=== PATIENT | female | born 1975 | race Caucasian/White ===

== ENCOUNTER 2021-06-19 12:56 | Day surgery (SDC) | payer MEDICAID ==
[~2021-06-19] VITALS: Ht 157.5 cm; Wt 127.3 kg
[2021-06-19] MEDS ORDERED: fentaNYL/PF 50MCG/1 ML 2ML syringe ONE (13:04)
[2021-06-19] MEDS ORDERED: MIDAZolam 1 MG/ML 5ML VIAL ONE (13:05)
[2021-06-19 13:10] VITALS: BP 144/82
[2021-06-19] MEDS ORDERED: CLOP75TA15 PO (13:19)
[2021-06-19] MEDS ORDERED: CELE-193 PO (13:20)
[2021-06-19] MEDS ORDERED: HYDR500C18 PO (13:29)
[2021-06-19] MEDS ORDERED: CYCL-1 PO (13:29)
[2021-06-19] MEDS ORDERED: ACET-3080 PO (13:29)
[2021-06-19] MEDS ORDERED: ALLO100T PO (13:29)
[2021-06-19] MEDS ORDERED: DULO-31 PO (13:29)
[2021-06-19] MEDS ORDERED: HYDR-3964 PO (13:29)
[2021-06-19 14:29] VITALS: BP 134/78
[2021-06-19 14:39] VITALS: BP 124/76
[2021-06-19 14:49] VITALS: BP 129/75
== END 2021-06-19 15:00 | disposition home or self-care (01) ==
LOC: GI LAB 12:56
PROVIDERS: ATTEND Internal Medicine Gastroenterology
DX: Z12.11 Encounter for screening for malignant neoplasm of colon (principal); D12.5 Benign neoplasm of sigmoid colon; K64.8 Other hemorrhoids; E66.9 Obesity, unspecified; Z68.43 Body mass index [BMI] 50.0-59.9, adult; Z87.891 Personal history of nicotine dependence; Z86.73 Personal history of transient ischemic attack (TIA), and cerebral infarction without residual deficits; Z72.89 Other problems related to lifestyle; Z91.040 Latex allergy status; Z83.71 Family history of colonic polyps
CPT/HCPCS: 45380; 45385; 99152; C1773; J2250; J3010; J7030; Z7512; 99153; A4620